=== PATIENT | male | born 1950 | race Caucasian/White ===

== ENCOUNTER 2017-03-25 21:26 | Observation (INO) ==
[2017-03-26] MEDS ORDERED: Nitroglycerin 0.4 MG TAB.SUBL SL PRN (03:38)
[2017-03-26] MEDS ORDERED: Ipratropium/Albuterol Neb 3 ML IH PRN (03:38)
[2017-03-26] MEDS ORDERED: Acetaminophen 325 MG TABLET PO PRN (03:38)
[2017-03-26] MEDS ORDERED: *HR* Dextrose 50 % in Water (Syg) 50 ML SYRINGE IVP PRN (03:39)
[2017-03-26] MEDS ORDERED: Dextrose Gel 15 GM/37.5 ML TUBE PO PRN ×2 (03:39)
[2017-03-26] MEDS ORDERED: D5% in Water 1,000 ML IVC PRN (03:39)
[2017-03-26] MEDS ORDERED: Ondansetron 4 MG/2 ML VIAL IVP PRN (03:41)
[2017-03-26] MEDS ORDERED: *HR* Morphine 2 MG/ML SYRINGE IVP PRN (03:41)
[2017-03-26] MEDS ORDERED: Naloxone 0.4 MG/ML INJ IVP PRN (03:41)
--- NOTE | 2017-03-26 03:47 | Internal Med History&Physical ---
Date of Encounter: 03/26/17 Time of Encounter: 03:44 Assessment and Plan (1) Syncope Current visit: Yes Status: Acute Unclear etiology Continue telemetry, check echocardiogram, check orthostatics, IV fluids Order MRI of the brain due to possible history of TIAs Fall precautions Omeprazole for GI prophylaxis and subcutaneous heparin for DVT prophylaxis. The patient will be admitted for observation. Full code. Time spent on this admission 40 minutes. Qualifiers: Syncope type: unspecified Qualified Code(s): R55 - Syncope and collapse (2) Dizziness Current visit: Yes Status: Acute Persistent with blurry vision since first fall (3) Concussion Current visit: Yes Status: Acute Qualifiers: Encounter type: sequela Loss of consciousness presence/duration: with LOC of 30 min or less Qualified Code(s): S06.0X1S - Concussion with loss of consciousness of 30 minutes or less, sequela (4) Rheumatoid arthritis Current visit: Yes Status: Acute Qualifiers: Rheumatoid arthritis location: unspecified site Rheumatoid factor presence : with rheumatoid factor Qualified Code(s): M05.9 - Rheumatoid arthritis with rheumatoid factor, unspecified (5) Benign essential tremor Current visit: Yes Status: Acute Continue primidone Confirm whether the patient is taking are not propanolol Confirm list of medications in the morning (6) Insulin dependent diabetes mellitus Current visit: No Status: Chronic Continue insulin sliding scale (7) HTN (hypertension) Current visit: No Status: Chronic Continue lisinopril Hydralazine IV as needed Qualifiers: Hypertension type: essential hypertension Qualified Code(s): I10 - Essential (primary) hypertension Internal Medicine - H&P: HPI Chief complaint: Syncope Admitted From: Emergency Dept History of present illness: Mr. Edwards is a 66 year old male with a past medical history of essential tremors currently taking primidone, stopped taking propanolol recently, diabetes type 2 insulin-dependent, diastolic CHF, rheumatoid arthritis. Came to the emergency room after having a syncopal episode at the friend's home. He was watching TV in a sitting position when all of a sudden apparently he passed out, the patient does not know for how long he was out but his friend told him that he was about 15 minutes. Also, on March 09 he fell and hit his head, he does not remember the details or whether he was dizzy before falling or not, has been feeling dizzy ever since. CT scan of the head did not show any abnormality his UA is unremarkable, his been having blurred vision since the first fall. Blood pressure was 168/85, glucose 186 urine tox screen was positive for marijuana which he admits being smoking last night and barbiturates but he is on primidone. Denies any other complaints Past Med Surg Social Fam HX - Past Medical History Medical history: CHF (Diastolic), diabetes (Insulin-dependent), hyperlipidemia, hypertension Psychiatric history: depression, other (Rheumatoid arthritis on Xeljanz, essential tremors and primidone) - Past Surgical History Surgical History: appendectomy, cataract, other (Echocardiogram in 2016 showed an ejection fraction of 50% with mild diastolic dysfunction) - Social History Smoking Status: Former smoker Smokeless Tobacco Status: Yes (1 can/5 days) Alcohol use: none Drug use: marijuana - Family History Father Living Status: Hx Family Cardiac Disorders: Yes Mother Family Member Ethnicity: Non- Living Status: Hx Family Cardiac Disorders: Yes - Additional Family History Additional family history: Brother and father with heart disease, mother with CVA Internal Medicine - H&P: Meds Acetaminophen [Non-Aspirin] 325 mg PO Q6H PRN 11/13/16 [History] Aspirin [Lo-Dose Aspirin EC] 81 mg PO DAILY 11/13/16 [History] Cholecalciferol (D-3) [Vitamin D] 1,000 unit PO DAILY 11/13/16 [History] Insulin Glargine [Lantus] 100 unit DAILY 11/13/16 [History] Primidone [Mysoline] 250 mg PO TID 11/13/16 [History] Lisinopril [Zestril] 40 mg PO DAILY 03/25/17 [History] 3 Allergy/AdvReac Type Severity Reaction Status Date / Time exenatide [From Byetta] Allergy Hives Verified 03/25/17 19:21 metformin Allergy Vomiting Verified 03/25/17 19:21 All Systems PM: A 10-system review of systems was performed and is negative for pertinent findings except as documented above in the HPI. Review of systems: No chest pain, shortness of breath, has been expressing mild headaches. Other systems out of the 10 review of were negative. Feels dizzy sometimes when he gets up - Constitutional Vitals: Temp Pulse Resp BP Pulse Ox 97.3 F L 82 16 168/85 95 03/26/17 00:11 03/26/17 00:11 03/26/17 00:11 03/26/17 00:11 03/26/17 00:11 General appearance: Present: A&O X 3 - Head Head exam: Present: atraumatic, normocephalic - Eye Eye exam: Present: PERRL, conjuntiva pink, sclera anicteric Pupils: Present: PERRL - Neck Neck exam general surgery: Present: supple, trachea midline. Absent: lymphadenopathy - Respiratory Respiratory exam: Present: CTAB. Absent: accessory muscle use, rales, rhonchi, wheezes - Cardiovascular Cardiovascular exam: Present: RRR, +S1, +S2. Absent: diastolic murmur, gallop, rubs, systolic murmur - GI/Abdominal GI/Abdominal exam: Present: normal bowel sounds, soft, no peritoneal signs. Absent: distended, tenderness - Extremities Exam Extremities exam: Present: warm, radial pulses palpable and symmetrical. Absent : calf tenderness, cyanotic, pedal edema - Neurological Exam Neurological exam: Present: CN II-XII intact, oriented X3, no focal deficits. Absent: pronater drift, facial droop, speech deficit - Skin Skin exam: Present: dry, intact Additional comments: Essential tremors Internal Med - H&P Results - Labs Labs: Blood cell count 6.8, hemoglobin 13.2, platelets 121, INR 1.1, sodium 140 potassium 4.1 chloride 106 CO2 21 BUN 11 creatinine 1.07 glucose 186. EKG does not show any abnormalities
[2017-03-26] MEDS: 0.9 % Sodium Chloride 1,000 ML IVC SCH ×2 (04:34→20:09)
[2017-03-26] MEDS: *HR* Heparin 5,000 UNIT/ML VIAL SQ SCH ×3 (04:43→20:07)
[2017-03-26 06:15] LABS: BUN/Creatinine Ratio 14 (6-26); Blood Urea Nitrogen 10 mg/dL (8-23); Calcium 8.1 mg/dL (8.6-10.3); Carbon Dioxide 27 mEq/L (23-29); Chloride 107 mEq/L (98-107); Chol/HDL Ratio 2.5 (0-4.9); Cholesterol 95 mg/dL (< 200); Glucose 164 mg/dL (70-105); HDL Cholesterol 38 mg/dL (40-59); LDL Cholesterol,Calculated 40 mg/dL (0-99); Osmolality,Calculated 289 (280-300); Potassium 3.6 mEq/L (3.5-5.1); Sodium 138 mEq/L (136-145); Triglycerides 87 mg/dL (< 150); eGFR For African Americans > 60 (> 60); eGFR For Non-African Americans > 60 (> 60)
[2017-03-26] MEDS: Insulin LISPRO 300 UNITS/3 ML VIAL SQ SCH ×3 (07:49→17:12)
[2017-03-26] MEDS ORDERED: Aspirin Enteric Coated 81 MG Tablet PO SCH (09:00)
[2017-03-26] MEDS: Lisinopril 20 MG TABLET PO SCH (10:57)
[2017-03-26] MEDS ORDERED: Baclofen 10 MG TABLET PO PRN (15:39)
--- NOTE | 2017-03-26 15:59 | Event Note ---
Date of Encounter: 03/26/17 Time of Encounter: 15:36 1. Syncope: unclear etiology. Continue telemetry, check echocardiogram, check orthostatics, IV fluids. Brain MRI pending 2. Hypertension: per hx. BP uncontrolled likely due to not taking home BP medication. Cont home BP medication. Monitor BP and titrate PRN 3. Rheumatoid arthritis: per hx. On PO prednsone PRN at home. Hold for now. 4. Benign essential tremor: Continue home primidone, propanolol
[2017-03-26] MEDS: Sennosides/Docusate Sodium TABLET PO SCH (20:07)
[2017-03-26] MEDS: *HR* OxyCODONE Immed Rel 5 MG TABLET PO PRN (20:09)
[2017-03-26] MEDS ORDERED: Insulin LISPRO 300 UNITS/3 ML VIAL SQ SCH (21:00)
[2017-03-27 04:43] LABS: Hematocrit 37.9 % (37.5-50.1); Hemoglobin 13.3 g/dL (12.9-16.9); Mean Corpuscular HGB Conc 35.1 g/dL (31.6-35.5); Mean Corpuscular Hemoglobin 30.7 pg (28.0-33.3); Mean Corpuscular Volume 87.5 fL (83.0-100.0); Mean Platelet Volume 11.1 fL (9.4-12.4); Platelet Count 133 K/mcL (140-400); Red Blood Count 4.33 M/mcL (4.19-5.50); Red Cell Distribution Width 13.2 % (11.5-14.5)
[2017-03-27 05:10] LABS: Alanine Aminotransferase 21 Units/L (7-52); Albumin 3.7 g/dL (3.5-5.7); Albumin/Globulin Ratio 1.5 (1.1-2.2); Alkaline Phosphatase 33 Units/L (34-104); Aspartate Amino Transferase 16 Units/L (13-39); BUN/Creatinine Ratio 10 (6-26); Bilirubin,Total 0.4 mg/dL (0.3-1.0); Blood Urea Nitrogen 7 mg/dL (8-23); Calcium 8.4 mg/dL (8.6-10.3); Carbon Dioxide 25 mEq/L (23-29); Chloride 107 mEq/L (98-107); Globulin 2.4 g/dL (2.4-3.5); Glucose 196 mg/dL (70-105); Osmolality,Calculated 285 (280-300); Potassium 3.9 mEq/L (3.5-5.1); Sodium 136 mEq/L (136-145); Total Protein 6.1 g/dL (6.4-8.9); eGFR For African Americans > 60 (> 60); eGFR For Non-African Americans > 60 (> 60)
[2017-03-27] MEDS: *HR* Heparin 5,000 UNIT/ML VIAL SQ SCH ×2 (06:03→12:51)
[2017-03-27] MEDS: *HR* OxyCODONE Immed Rel 5 MG TABLET PO PRN (08:45)
[2017-03-27] MEDS: Insulin LISPRO 300 UNITS/3 ML VIAL SQ SCH ×2 (08:45→12:51)
[2017-03-27] MEDS: Lisinopril 20 MG TABLET PO SCH (08:45)
[2017-03-27] MEDS: Sennosides/Docusate Sodium TABLET PO SCH (08:46)
[2017-03-27] MEDS ORDERED: NON-FORMULARY MEDICATION 1 EACH EACH (Lisinopril [Zestril] 40 MG) PO SCH (09:00)
[2017-03-27] MEDS ORDERED: (Leflunomide [Arava] 10 MG) PO SCH (09:00)
[2017-03-27] MEDS ORDERED: Aspirin Enteric Coated 81 MG Tablet PO SCH (09:00)
[2017-03-27] MEDS ORDERED: Cholecalciferol (D-3) 1,000 UNIT TABLET PO SCH (09:00)
[2017-03-27] MEDS ORDERED: Ketorolac 30 MG/ML VIAL IVP ONE (11:37)
[2017-03-27] MEDS ORDERED: Metoclopramide 10 MG/2 ML VIAL IVP ONE (11:37)
[2017-03-27 15:05] VITALS: BP 163/80
--- NOTE | 2017-03-27 17:04 | Discharge Summary ---
Date of Encounter: 03/27/17 Time of Encounter: 16:59 - Discharge Diagnosis (1) Concussion Priority: Primary Status: Acute Comments: patient reports severe fall on 03/09/17 that resulted in hitting his head. Head CT reported as unremarkable at that time. Now with syncopal event on day of presentation; head CT nonacute, brain MRI unremarkable. TTE with EF 60%, mild diastolic dysfunction. Carotid duplex with bilateral proximal ICA moderate stenosis. No further syncopal episodes; suspect possibly secondary to previous concussion. Patient declined further inpatient workup/treatment at this time due to financial/insurance concerns. Advised to follow-up with PCP within one week Qualifiers: Encounter type: sequela Loss of consciousness presence/duration: with LOC of 30 min or less Qualified Code(s): S06.0X1S - Concussion with loss of consciousness of 30 minutes or less, sequela (2) Syncope Priority: Primary Status: Acute Comments: plan as noted above Qualifiers: Syncope type: unspecified Qualified Code(s): R55 - Syncope and collapse (3) Benign essential tremor Priority: Primary Status: Acute Comments: per hx. Cont home propanolol (4) Rheumatoid arthritis Priority: Primary Status: Acute Comments: per hx. Cont home PRN prednisone Qualifiers: Rheumatoid arthritis location: unspecified site Rheumatoid factor presence : with rheumatoid factor Qualified Code(s): M05.9 - Rheumatoid arthritis with rheumatoid factor, unspecified - Discharge Medications Home Medications: Acetaminophen [Tylenol] 1,000 mg PO BID PRN 03/26/17 [History] Aspirin Enteric Coated [Aspirin EC] 81 mg PO DAILY 03/26/17 [History] Baclofen [Lioresal] 5 mg PO TID PRN 03/26/17 [History] Cholecalciferol (D-3) [Vitamin D] 1,000 unit PO DAILY 03/26/17 [History] Insulin Glargine [Lantus] 78 unit SQ HS 03/26/17 [History] Leflunomide [Arava] 10 mg PO DAILY 03/26/17 [History] Lisinopril [Zestril] 40 mg PO DAILY 03/26/17 [History] Prazosin HCl [Minipress] 2 mg PO HS 03/26/17 [History] Primidone [Mysoline] 250 mg PO TID PRN 03/26/17 [History] Propranolol HCl 40 mg PO TID PRN 03/26/17 [History] Rosuvastatin Calcium [Crestor] 20 mg PO HS 03/26/17 [History] Sennosides/Docusate Sodium [Senna-Docusate Sodium Tablet] 1 tab PO BID 03/26/17 [History] Tofacitinib Citrate [Xeljanz Xr] 11 mg PO DAILY 03/26/17 [History] Venlafaxine XR (24 HR) [Effexor Xr] 150 mg PO DAILY 03/26/17 [History] predniSONE [PredniSONE] 5 mg PO Q48H 03/26/17 [History] Allergies/Adverse Reactions: 3 Allergy/AdvReac Type Severity Reaction Status Date / Time exenatide [From Byetta] Allergy Hives Verified 03/26/17 08:34 metformin AdvReac Vomiting Verified 03/26/17 08:34 Procedures/tests Complete & Pending: Procedures Performed prior 72 hours Category Date Time Status MR head/brain wo con [MR] Routine MRI 03/26/17 03:39 Draft EV carotid duplex imaging BI Routine Y 03/26/17 15:59 Completed EV echocardiogram Routine Y 03/26/17 03:39 Completed Date of admission: 03/25/17 23:45 [facility] care physician[facility] Discharging clinician: Yary Danielson Anticipated date of discharge: 03/27/17 - Patient Status Disposition: Home, Self-Care Condition: Good Functional capacity at discharge: independent ambulation Overall status at discharge: patient is progressing back to baseline - Discharge Instructions Instructions: Concussion (DC), Post Concussion Syndrome (GEN), Acute Headache ( DC) Follow Up With: [facility],PCP [Primary Care Provider] - - Diet and Activity Activity: increase activity as tolerated Diet: advance to your usual diet Interval History: Seen and examined at bedside. Still complaining of headache which he said he has had since his fall in February. No blurred vision, no nausea or vomiting. States she would wants to go home if unable to verify the [facility] will pay for his hospital stay. Spoke with social science analyst who noted [facility] will likely pay due to contracted [place] however unable to confirm at this time. Patient declining any further treatment and would like to be discharged home. Hospital course: See assessment and plan for hospital course - Time Spent with Patient Total time spent providing and/or coordinating discharge services: - Constitutional Vitals: Temp Pulse Resp BP Pulse Ox 97.6 F 89 15 163/80 95 03/27/17 15:03 03/27/17 15:03 03/27/17 15:03 03/27/17 15:03 03/27/17 15:03 General appearance: Present: A&O X 3 - Head Head exam: Present: atraumatic, normocephalic - Eye Eye exam: Present: PERRL, conjuntiva pink, sclera anicteric Pupils: Present: PERRL - Neck Neck exam general surgery: Present: supple, trachea midline. Absent: lymphadenopathy - Respiratory Respiratory exam: Present: CTAB. Absent: accessory muscle use, rales, rhonchi, wheezes - Cardiovascular Cardiovascular exam: Present: RRR, +S1, +S2. Absent: diastolic murmur, gallop, rubs, systolic murmur - GI/Abdominal GI/Abdominal exam: Present: normal bowel sounds, soft, no peritoneal signs. Absent: distended, tenderness - Extremities Exam Extremities exam: Present: warm, radial pulses palpable and symmetrical. Absent : calf tenderness, cyanotic, pedal edema - Neurological Exam Neurological exam: Present: CN II-XII intact, oriented X3, no focal deficits. Absent: pronater drift, facial droop, speech deficit - Skin Skin exam: Present: dry, intact
== END 2017-03-27 17:52 | disposition home or self-care (01) ==
LOC: 3BNU
PROVIDERS: ADMIT Internal Medicine; ATTEND Registered Nurse